=== PATIENT | male | born 1950 | race Caucasian/White ===

== ENCOUNTER 2019-06-08 06:00 | Outpatient (RCR) | payer OTHER, SELFPAY | END 2019-07-08 00:01 | LOC: SPT 06:00 | PROVIDERS: Family Provider Emergency Medicine Emergency Medical Services; Visit Provider Emergency Medicine Emergency Medical Services | DX: R53.1 Weakness (principal); M25.512 Pain in left shoulder; M79.642 Pain in left hand | CPT/HCPCS: 97110 ×2 ==

== ENCOUNTER 2019-06-08 06:00 | Outpatient (RCR) | payer OTHER, SELFPAY | END 2019-07-08 00:01 | LOC: SOT 06:00 | PROVIDERS: Family Provider Emergency Medicine Emergency Medical Services; Visit Provider Emergency Medicine Emergency Medical Services | DX: R53.1 Weakness (principal) | CPT/HCPCS: 97110 ×3; 97140 ×3 ==

== ENCOUNTER 2019-07-09 06:00 | Outpatient (RCR) | payer OTHER, SELFPAY | END 2019-08-08 23:59 | disposition home or self-care (01) | LOC: SOT 06:00 | PROVIDERS: Family Provider Emergency Medicine Emergency Medical Services; Visit Provider Emergency Medicine Emergency Medical Services | DX: R53.1 Weakness (principal) | CPT/HCPCS: 97110; 97140; 97760 ==

== ENCOUNTER → 2019-08-07 09:18 | Outpatient (BNVA) | payer OTHER, SELFPAY | PROVIDERS: Family Provider Emergency Medicine Emergency Medical Services; PCP Emergency Medicine Emergency Medical Services; Visit Provider Urology | DX: R31.29 Other microscopic hematuria (principal); N39.9 Disorder of urinary system, unspecified | CPT/HCPCS: 81001 ==

== ENCOUNTER 2019-08-09 06:00 | Outpatient (RCR) | payer OTHER, SELFPAY | END 2019-09-06 23:59 | disposition home or self-care (01) | LOC: SOT 06:00 | PROVIDERS: Family Provider Emergency Medicine Emergency Medical Services; PCP Emergency Medicine Emergency Medical Services; Visit Provider Emergency Medicine Emergency Medical Services | DX: R53.1 Weakness (principal) | CPT/HCPCS: 97110; 97140 ==

== ENCOUNTER 2019-09-22 08:36 | Outpatient (RCR) | payer OTHER, SELFPAY | END 2019-10-07 23:59 | disposition home or self-care (01) | LOC: SPT 08:36 | PROVIDERS: Family Provider Emergency Medicine Emergency Medical Services; PCP Emergency Medicine Emergency Medical Services; Referring Provider Emergency Medicine Emergency Medical Services; Visit Provider Emergency Medicine Emergency Medical Services | DX: G54.0 Brachial plexus disorders (principal) | CPT/HCPCS: 97110; 97161 ==

== ENCOUNTER 2019-10-08 06:00 | Outpatient (RCR) | payer OTHER, SELFPAY | END 2019-11-06 23:59 | disposition home or self-care (01) | LOC: SPT 06:00 | PROVIDERS: PCP Emergency Medicine Emergency Medical Services; Referring Provider Emergency Medicine Emergency Medical Services; Visit Provider Emergency Medicine Emergency Medical Services | DX: M79.602 Pain in left arm (principal); G54.0 Brachial plexus disorders | CPT/HCPCS: 97110 ==

== ENCOUNTER 2020-01-13 06:00 | Outpatient (RCR) | payer OTHER, SELFPAY | END 2020-02-06 23:59 | disposition home or self-care (01) | LOC: SOT 06:00 | PROVIDERS: PCP Emergency Medicine Emergency Medical Services; Referring Provider Surgery Plastic and Reconstructive Surgery; Visit Provider Surgery Plastic and Reconstructive Surgery | DX: G54.0 Brachial plexus disorders (principal) | CPT/HCPCS: 97110; 97140; 97167 ==

== ENCOUNTER 2020-02-07 06:00 | Outpatient (RCR) | payer OTHER, SELFPAY | END 2020-03-08 23:59 | disposition home or self-care (01) | LOC: SOT 06:00 | PROVIDERS: PCP Emergency Medicine Emergency Medical Services; Referring Provider Surgery Plastic and Reconstructive Surgery; Visit Provider Surgery Plastic and Reconstructive Surgery | DX: G54.0 Brachial plexus disorders (principal) | CPT/HCPCS: 97110; 97140 ==

== ENCOUNTER 2020-03-09 06:00 | Outpatient (RCR) | payer OTHER, SELFPAY | END 2020-04-07 23:59 | disposition home or self-care (01) | LOC: SOT 06:00 | PROVIDERS: PCP Emergency Medicine Emergency Medical Services; Referring Provider Surgery Plastic and Reconstructive Surgery; Visit Provider Surgery Plastic and Reconstructive Surgery | DX: G54.0 Brachial plexus disorders (principal) | CPT/HCPCS: 97032; 97110; 97112; 97140 ==

== ENCOUNTER 2020-04-08 06:00 | Outpatient (RCR) | payer OTHER, SELFPAY | END 2020-05-08 23:59 | disposition home or self-care (01) | LOC: SOT 06:00 | PROVIDERS: PCP Emergency Medicine Emergency Medical Services; Referring Provider Surgery Plastic and Reconstructive Surgery; Visit Provider Surgery Plastic and Reconstructive Surgery | DX: G54.0 Brachial plexus disorders (principal) | CPT/HCPCS: 97110; 97112 ==

== ENCOUNTER 2020-06-08 00:47 | Outpatient (RCR) | payer OTHER, SELFPAY | END 2020-07-08 23:59 | disposition home or self-care (01) | LOC: SOT 00:47 | PROVIDERS: PCP Emergency Medicine Emergency Medical Services; Referring Provider Surgery Plastic and Reconstructive Surgery; Visit Provider Surgery Plastic and Reconstructive Surgery | DX: G54.0 Brachial plexus disorders (principal) | CPT/HCPCS: 97110; 97112 ==

== ENCOUNTER 2020-07-09 06:00 | Outpatient (RCR) | payer OTHER, SELFPAY | END 2020-08-08 23:59 | disposition home or self-care (01) | LOC: SOT 06:00 | PROVIDERS: PCP Emergency Medicine Emergency Medical Services; Referring Provider Surgery Plastic and Reconstructive Surgery; Visit Provider Surgery Plastic and Reconstructive Surgery | DX: G54.0 Brachial plexus disorders (principal) | CPT/HCPCS: 87635 ==

== ENCOUNTER 2020-08-09 06:00 | Outpatient (CLI) | payer OTHER, SELFPAY | END 2020-08-09 06:01 | disposition home or self-care (01) | LOC: LAB 02-23 14:30 | PROVIDERS: PCP Emergency Medicine Emergency Medical Services; Visit Provider Urology | DX: R31.29 Other microscopic hematuria (principal) | CPT/HCPCS: 81003 ==

== ENCOUNTER → 2020-09-20 08:20 | Outpatient (BNVA) | payer OTHER, SELFPAY | PROVIDERS: PCP Emergency Medicine Emergency Medical Services; Visit Provider Urology | DX: N40.1 Benign prostatic hyperplasia with lower urinary tract symptoms (principal); R31.29 Other microscopic hematuria | CPT/HCPCS: 81003 ==

== ENCOUNTER 2021-08-01 09:24 | Emergency (ER) | payer OTHER, MEDICARE, SELFPAY ==
--- NOTE | 2021-08-01 09:49 | W.ED.MALEGU ---
Documented by User: YUE Ferguson 08/01/21 16:30 HPI - Male Genitourinary General: Chief complaint: Urogenital-Male Stated complaint: URINATING BLOOD Time Seen by Provider: 08/01/21 10:42 History of Present Illness: HPI Narrative: Patient states he urinated blood last couple days. Has history of enlarged prostate. Said he had bloody stools back on June 26 after he started taking niacin once he stopped that bloody stools went away. Patient states when he starts his stream is, bright red and then it starts clear up. He denies any fever chills nausea vomiting or difficulty urinating present patient has had some right flank pain. Is scheduled see Dr. Adams on 227 for colonoscopy consult. Has had a history of 3 open heart. Patient is diabetic. Associated symptoms: Reports hematuria; Deny nausea or vomiting Review of Systems Const: Denies: fever(s), chills or body aches Eyes: Denies: change in vision or blurry vision ENMT: Denies: throat pain or nasal congestion Card: Denies: chest pain or dyspnea on exertion Resp: Denies: dyspnea, productive cough or non-productive cough GI: Denies: abdominal pain, nausea or vomiting : Reports: flank pain (Right side) and hematuria; Denies: difficulty urinating Musc: Denies: extremity pain Skin/Breast: Denies: rash Neuro: Denies: headache(s) Psych: Denies: anxiety or depression Uriel/Lymph: Denies: easy bruising PFSH ED PFSH: Medical History 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 BPH loc w urin obs/LUTS Diabetes mellitus GERD (gastroesophageal reflux disease) Hypercholesteremia Hypertension Microscopic hematuria TIA (transient ischemic attack) Surgical History History of circumcision History of mitral valve replacement with bioprosthetic valve Status post colonoscopy Family History Mother , AT AGE 74 CHF (congestive heart failure) Father , AT AGE 86 CAD (coronary artery disease) Social History Smoking and tobacco status: never smoked Alcohol intake: never Adopted: No Caregiver/support person: No Lives independently: No Household members: spouse Marital status: Current occupational status: retired History of recent travel: No Physical Exam Const: COMMON NORMALS: no acute distress, average body habitus and patient oriented x3 HENMT: COMMON NORMALS: normocephalic HEAD & SCALP: normal to inspection and normocephalic FACE & SINUS: normal facial exam Eye: COMMON NORMALS: conjunctivae normal GENERAL EYE: appearance normal, both eyes and all related structures CONJUNCTIVA: Yes conjunctivae normal Neck/C-Spine: COMMON NORMALS: no JVD Chest: COMMONS NORMALS: normal inspection of the chest Resp: COMMON NORMALS: normal respiratory effort and clear to auscultation bilaterally AUSCULTATION: clear to auscultation bilaterally Cardio: COMMON NORMALS: no JVD, regular rate and regular rhythm RATE: regular rate RHYTHM: regular rhythm GI: COMMON NORMALS: Normal to inspection, nondistended, normoactive bowel sounds present Extremity: COMMON NORMALS: normal to inspection and full ROM Neuro: COMMON NORMALS: patient oriented x3 Course Vital Signs: Vital signs: Vital Signs Temperature 98.1 F 08/01/21 11:19 Pulse Rate 79 08/01/21 11:19 Respiratory Rate 17 08/01/21 11:19 Blood Pressure 150/84 08/01/21 11:19 Pulse Oximetry 100 08/01/21 11:19 MDM - Male MDM Narrative Medical decision making narrative: Discussed case and laboratory and clinical presentation with Dr. Anne agreed that best plan patient follow-up Dr. Rodríguez since ER he sees him. Patient has hematuria. Also has history of enlarged prostate and that is visible on the CT. CT is no change in that from previous no 2017. Patient does have obvious cholelithiasis on CT. And mild sigmoid diverticulosis. Discussed with patient his and agree with plan and they will follow up with Dr. Adams as scheduled on the and will call Dr. Rodríguez's office today and see if they want to see him sooner than later which he does have appointment in September. Lab Data Labs: Lab Results 08/01/21 10:06 Urine Color Yellow (Yellow) Urine Appearance Hazy A (CLEAR) Urine pH 5 (5-7) Ur Specific Counce 1.010 (1.005-1.030) Urine Protein Neg (Negative) Urine Glucose (UA) Norm (Normal) Urine Ketones Negative (Negative) Urine Blood 3+ H (Negative) Urine Nitrate Negative (Negative) Urine Bilirubin Neg (Negative) Urine Urobilinogen Norm mg/dL mg/dL (Negative) Ur Leukocyte Esterase Negative (Negative) Urine RBC Too numerous to cnt /hpf H /hpf (0-2) Urine WBC 0-4 /hpf H /hpf (0-5) Ur Squamous Epith Cells Rare /hpf /hpf (0-5) Amorphous Sediment Not Reportable Urine Bacteria Trace /hpf /hpf (NONE) Discharge Plan Discharge Patient Disposition: Home Clinical Impression: Microscopic hematuria Condition: Stable Prescriptions: No Action alfuzosin 10 mg tablet extended release 24 hr 10 mg PO DAILY Qty: 90 3RF clopidogrel [Plavix] 75 mg tablet 75 mg PO QDAY 0RF pantoprazole [Protonix] 40 mg tablet,delayed release (DR/EC) 40 mg PO QDAY 0RF atorvastatin 40 mg tablet 40 mg PO QDAY 0RF Rx Instructions: 1/2 TAB docusate sodium [Colace] 100 mg capsule 100 mg PO QDAY 0RF metoprolol succinate 25 mg tablet extended release 24 hr 25 mg PO QDAY 0RF aspirin [Adult Low Dose Aspirin] 81 mg tablet,delayed release (DR/EC) 81 mg PO QDAY 0RF furosemide [Lasix] 40 mg tablet 40 mg PO QDAY PRN0RF gabapentin 600 mg tablet 600 mg PO .PRN 0RF metformin 1,000 mg tablet extended release 24hr 1,000 mg PO DAILY 0RF Rx Instructions: 1/2 TABLET NEEDED potassium chloride [Klor-Con M20] 20 mEq tablet,ER particles/crystals 20 meq PO .PRN 0RF finasteride 5 mg tablet 5 mg PO QDAY Qty: 90 3RF Discharge Orders: Discharge ED (Routine); Ordered 08/01/21 Ordered By: Kranthi Schwab Referrals: Carson Abel, [Primary Care Provider] - Discharge Diet: Usual diet Discharge Activity: Resume usual activity Patient Instructions: Hematuria (ED) Activity Restrictions/Additional Instructions: Keep appointment as scheduled. Contact Dr. Rodríguez's office today and see if they would like to see you sooner than later. Monitor for any significant changes. If signs and symptoms of infection develop such as high fever chills urinary frequency please follow-up your primary care or return here. 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 BPH loc w urin obs/LUTS Diabetes mellitus GERD (gastroesophageal reflux disease) Hypercholesteremia Hypertension Microscopic hematuria TIA (transient ischemic attack) Surgical History History of circumcision History of mitral valve replacement with bioprosthetic valve Status post colonoscopy Family History Mother , AT AGE 74 CHF (congestive heart failure) Father , AT AGE 86 CAD (coronary artery disease) Social History Smoking and tobacco status: never smoked Alcohol intake: never Adopted: No Caregiver/support person: No Lives independently: No Household members: spouse Marital status: Current occupational status: retired History of recent travel: No Course Vital Signs: Vital signs: Vital Signs Temperature 98.1 F 08/01/21 11:19 Pulse Rate 79 08/01/21 11:19 Respiratory Rate 17 08/01/21 11:19 Blood Pressure 150/84 08/01/21 11:19 Pulse Oximetry 100 08/01/21 11:19 MDM - Male MDM Narrative Medical decision making narrative: Patient care discussed with Kranthi Schwab NP. I have reviewed labs and documentation. Raymond Hinkle MD Emergency Medicine Lab Data Labs: Lab Results 08/01/21 10:06 Urine Color Yellow (Yellow) Urine Appearance Hazy A (CLEAR) Urine pH 5 (5-7) Ur Specific Counce 1.010 (1.005-1.030) Urine Protein Neg (Negative) Urine Glucose (UA) Norm (Normal) Urine Ketones Negative (Negative) Urine Blood 3+ H (Negative) Urine Nitrate Negative (Negative) Urine Bilirubin Neg (Negative) Urine Urobilinogen Norm mg/dL mg/dL (Negative) Ur Leukocyte Esterase Negative (Negative) Urine RBC Too numerous to cnt /hpf H /hpf (0-2) Urine WBC 0-4 /hpf H /hpf (0-5) Ur Squamous Epith Cells Rare /hpf /hpf (0-5) Amorphous Sediment Not Reportable Urine Bacteria Trace /hpf /hpf (NONE) Discharge Plan Discharge Patient Disposition: Home Clinical Impression: Microscopic hematuria Condition: Stable Prescriptions: No Action alfuzosin 10 mg tablet extended release 24 hr 10 mg PO DAILY Qty: 90 3RF clopidogrel [Plavix] 75 mg tablet 75 mg PO QDAY 0RF pantoprazole [Protonix] 40 mg tablet,delayed release (DR/EC) 40 mg PO QDAY 0RF atorvastatin 40 mg tablet 40 mg PO QDAY 0RF Rx Instructions: 1/2 TAB docusate sodium [Colace] 100 mg capsule 100 mg PO QDAY 0RF metoprolol succinate 25 mg tablet extended release 24 hr 25 mg PO QDAY 0RF aspirin [Adult Low Dose Aspirin] 81 mg tablet,delayed release (DR/EC) 81 mg PO QDAY 0RF furosemide [Lasix] 40 mg tablet 40 mg PO QDAY PRN0RF gabapentin 600 mg tablet 600 mg PO .PRN 0RF metformin 1,000 mg tablet extended release 24hr 1,000 mg PO DAILY 0RF Rx Instructions: 1/2 TABLET NEEDED potassium chloride [Klor-Con M20] 20 mEq tablet,ER particles/crystals 20 meq PO .PRN 0RF finasteride 5 mg tablet 5 mg PO QDAY Qty: 90 3RF Discharge Orders: Discharge ED (Routine); Ordered 08/01/21 Ordered By: Kranthi Schwab Referrals: Carson Abel DO [Primary Care Provider] - Discharge Diet: Usual diet Discharge Activity: Resume usual activity Patient Instructions: Hematuria (ED) Activity Restrictions/Additional Instructions: Keep appointment as scheduled. Contact Dr. Rodríguez's office today and see if they would like to see you sooner than later. Monitor for any significant changes. If signs and symptoms of infection develop such as high fever chills urinary frequency please follow-up your primary care or return here. Coding Level of Care Code ED Environmental Technician for Jayda Fwd Exam Comprehensive
[2021-08-01 09:54] VITALS: BP 138/78; PULSE 80; RESP 16; TEMP 36.6; O2SAT 97; BMI 32.1
--- NOTE | 2021-08-01 10:38 | CT_ITS ---
WS: [id number] CT ABDOMEN AND PELVIS NONCONTRAST HISTORY: hematuria, flank pain right TECHNIQUE: Imaging performed through the abdomen and pelvis. Coronal and sagittal reformats are submi tted. All CT scans at [facility] use at least one of these dose optimization techniques: auto mated exposure control; mA and/or kV adjustment per patient size (includes targeted exams where dose is matched to clinical indication); or iterative reconstruction. DLP: 1866.43 mGy.cm COMPARISON: 01/17/2018 Lower thorax: Chronic emphysematous changes at the lung bases. 5 mm scar at the LEFT lung base. Heart is slightly enlarged. No pericardial fluid. Small hiatal hernia. Liver: Normal size liver. No mass or bile duct dilatation. Gallbladder: Normally distended gallbladder. Numerous small stones layering in the gallbladder which are new since 01/17/2018. No adjacent inflammation. Common bile duct is normal. Pancreas: Normal size and attenuation. Normal pancreatic duct. No pancreatitis or mass. Spleen: Normal size spleen. There are multiple defects within the spleen from scarring and fibrosis. Infarct was identified on the prior study from 2018 and now there is focal area of scarring in the re gion of the prior infarct. Adrenal glands: Normal. No mass. Right kidney: Normal size kidney with no mass or hydronephrosis. Left kidney: Very mild perinephric stranding. No obstruction. No calcification. Aorta: Mild atherosclerosis abdominal aorta with no aneurysm. There are a few subcentimeter and benign-appearing retroperitoneal lymph nodes. GI tract: Normal appendix. No GI tract obstruction. Stomach is not distended. Normal small bowel john astrid. Numerous diverticula in the descending and sigmoid colon with no acute diverticulitis. Abdominal wall: Small umbilical hernia contains fat only. Pelvis: Well-distended urinary bladder. Prostate gland is enlarged encroaching into the urinary bladd er. Prostate measures 5.0 x 3.4 cm and extends over a length of 6.3 cm. Encroachment into the urinary bladder similar to the prior study from 2018. No free fluid. No adenopathy. Osseous structures: Moderate spondylitic changes in the lumbar spine. No osteoblastic or osteolytic b one disease. Partial fusion of the SI joints. CT/CT kidney stone 22368 IMPRESSION: 1. No renal obstruction or calcifications. 2. Cholelithiasis without acute cholecystitis. 3. Prostate gland enlargement with encroachment into the urinary bladder. 4. Mild sigmoid diverticulosis without acute diverticulitis. 5. No free fluid or free air. 6. Normal appendix.
[2021-08-01 10:39] LABS: Add Urine Microscopic? YES; Bilirubin Urine Neg (Negative); Blood Urine 3+ (Negative); Glucose Urine UA Norm (Normal); Ketones Urine Negative (Negative); Leukocyte Esterase Urine Negative (Negative); Nitrate Urine Negative (Negative); Protein Urine Neg (Negative); Urine Appearance Hazy (CLEAR); Urine Color Yellow (Yellow); Urobilinogen Urine Norm (Negative); pH Urine 5 (5-7)
[2021-08-01 10:40] LABS: Add Urine Culture? Yes; Bacteria Urine TRACE /hpf; RBC Urine TOO NUMEROUS TO CNT /hpf (0-2); Squamous Epithelial Cell Urine RARE /hpf (0-5); WBC Urine 0-4 /hpf (0-5)
[2021-08-01 11:19] VITALS: BP 150/84; PULSE 79; RESP 17; TEMP 36.7; O2SAT 100
== END 2021-08-01 11:35 | disposition home or self-care (01) ==
PROVIDERS: Emergency Provider Nurse Practitioner Family; PCP Emergency Medicine Emergency Medical Services
DX: R31.29 Other microscopic hematuria (principal); Z79.84 Long term (current) use of oral hypoglycemic drugs; Z79.02 Long term (current) use of antithrombotics/antiplatelets; Z79.82 Long term (current) use of aspirin; E11.9 Type 2 diabetes mellitus without complications; I10 Essential (primary) hypertension; Z86.73 Personal history of transient ischemic attack (TIA), and cerebral infarction without residual deficits
CPT/HCPCS: 74176; 81001; 87086; 99282

== ENCOUNTER → 2021-08-04 13:46 | Outpatient (BNVA) | payer OTHER, MEDICARE, SELFPAY | PROVIDERS: PCP Emergency Medicine Emergency Medical Services; Visit Provider Urology | DX: N40.1 Benign prostatic hyperplasia with lower urinary tract symptoms (principal); Z12.5 Encounter for screening for malignant neoplasm of prostate; R31.0 Gross hematuria; Z79.02 Long term (current) use of antithrombotics/antiplatelets | CPT/HCPCS: 81003; 87086; 88112; G0103 ==

== ENCOUNTER → 2021-09-07 09:30 | Outpatient (BNVA) | payer OTHER, SELFPAY | PROVIDERS: PCP Emergency Medicine Emergency Medical Services; Visit Provider Internal Medicine | DX: Z20.822 Contact with and (suspected) exposure to COVID-19 (principal); Z01.812 Encounter for preprocedural laboratory examination | CPT/HCPCS: 87635 ==

== ENCOUNTER → 2021-09-21 08:58 | Outpatient (BNVA) | payer OTHER, SELFPAY | PROVIDERS: PCP Emergency Medicine Emergency Medical Services; Visit Provider Nurse Practitioner Family | DX: Z20.822 Contact with and (suspected) exposure to COVID-19 (principal); J98.9 Respiratory disorder, unspecified; R50.9 Fever, unspecified | CPT/HCPCS: 87635 ==

== ENCOUNTER 2021-09-26 06:38 | Day surgery (SDC) | payer OTHER, SELFPAY ==
[2021-09-07 14:27] VITALS: BMI 31.6
[2021-09-26 07:40] VITALS: BP 146/94; PULSE 90; RESP 20; TEMP 36.1; O2SAT 100
--- NOTE | 2021-09-26 07:43 | ANES.PREANE2 ---
Pre-Anesthetic Assessment Height/Weight: Height 1.93 m Weight 117.934 kg Preop Diagnosis: Melena and hematochezia Operation Date: 09/26/21 08:30 Proposed Procedures p EGD 78893/k92.1(Not Applicable) - Chu Adams MD s Colonoscopy 00985/k92.1(Not Applicable) - Chu Adams MD Familial anesthetic complications: None Was Beta Lio taken within 24 hours: Yes Was Clonidine taken within 24 hours: N/A Social No alcohol and No tobacco Exam alert, oriented x 3 and clear to auscultation bilaterally irregular Airway Submandibular: within normal limits Cervical ROM: within normal limits Mallampati: Class III Dentition: chipped Comments: Comments: Apparent h/o difficult intubation, says teeth chipped during intubation CV/HEM Atrial Fibrillation, Anemia and Hypertension LUE aneurysm, 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 Metabolic Diabetes Mellitus, Hyperlipidemia, Morbid Obesity and Thyroid Disease Neuropsych Neuropathy Anesthetic Plan ASA status: 3 Anesthesia: MAC Medications/Allergies Home Medications Medication Instructions Recorded Confirmed Last Taken Type aspirin 81 mg tablet,delayed 81 mg PO QDAY 08/07/19 09/26/21 09/25/21 History release (Adult Low Dose Aspirin) atorvastatin 40 mg tablet 40 mg PO QDAY 08/07/19 09/26/21 09/25/21 History clopidogrel 75 mg tablet (Plavix) 75 mg PO QDAY 08/07/19 09/26/21 09/25/21 History docusate sodium 100 mg capsule 100 mg PO QDAY 08/07/19 09/26/21 09/25/21 History (Colace) furosemide 40 mg tablet (Lasix) 40 mg PO QDAY PRN 08/07/19 09/26/21 Unknown History metoprolol succinate 25 mg 25 mg PO QDAY 08/07/19 09/26/21 09/26/21 History tablet,extended release 24 hr pantoprazole 40 mg tablet,delayed 40 mg PO QDAY 08/07/19 09/26/21 09/25/21 History release (Protonix) alfuzosin 10 mg tablet,extended 10 mg PO DAILY #90 tab 08/09/20 09/26/21 09/25/21 Rx release 24 hr gabapentin 600 mg tablet 600 mg PO DAILY PRN tab 09/20/20 09/26/21 Unknown History metformin 1,000 mg tablet,extended 500 mg PO BID tab 09/20/20 09/23/21 Unknown History release 24hr potassium chloride 20 mEq 20 meq PO DAILY PRN tab 09/20/20 09/26/21 Unknown History tablet,extended release(part/cryst) (NighatCon M) finasteride 5 mg tablet 5 mg PO QDAY #90 tab 08/04/21 09/26/21 09/25/21 Rx Allergies Allergy/AdvReac Type Severity Reaction Status Date / Time Sulfa (Sulfonamide Allergy Unknown Verified 09/26/21 07:34 Antibiotics) [facility] Anesthesia Medical History 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 BPH loc w urin obs/LUTS Diabetes mellitus GERD (gastroesophageal reflux disease) Hypercholesteremia Hypertension Microscopic hematuria TIA (transient ischemic attack) Surgical History History of circumcision History of mitral valve replacement with bioprosthetic valve Status post colonoscopy Family History Mother , AT AGE 74 CHF (congestive heart failure) Father , AT AGE 86 CAD (coronary artery disease) Social History Smoking and tobacco status: never smoked Alcohol intake: never Adopted: No Caregiver/support person: No Lives independently: No Household members: spouse Marital status: Current occupational status: retired History of recent travel: No Data Anesthesia Cardiac Studies: No Data to Display
[2021-09-26] MEDS: sodium chloride 0.9% 1,000 ML 30 ML IV (07:52)
--- NOTE | 2021-09-26 07:54 | W.PM.OPSFHP ---
Same Day Surgery H&P Indication for Procedure/HPI DATE OF PROCEDURE: September 26, 2021 CHIEF COMPLAINT/INDICATIONFOR SURGICAL PROCEDURE: Hematochezia PREOP DIAGNOSIS: Melena and hematochezia PLANNED PROCEDURE: Operation Date: 09/26/21 08:30 Proposed Procedures p EGD 03468/k92.1(Not Applicable) - Chu Adams MD s Colonoscopy 79851/k92.1(Not Applicable) - Chu Adams MD Medications/Allergies* Home Medications Medication Instructions Recorded Confirmed Type aspirin 81 mg tablet,delayed 81 mg PO QDAY 08/07/19 09/26/21 History release (Adult Low Dose Aspirin) atorvastatin 40 mg tablet 40 mg PO QDAY 08/07/19 09/26/21 History clopidogrel 75 mg tablet (Plavix) 75 mg PO QDAY 08/07/19 09/26/21 History docusate sodium 100 mg capsule 100 mg PO QDAY 08/07/19 09/26/21 History (Colace) furosemide 40 mg tablet (Lasix) 40 mg PO QDAY PRN 08/07/19 09/26/21 History metoprolol succinate 25 mg 25 mg PO QDAY 08/07/19 09/26/21 History tablet,extended release 24 hr pantoprazole 40 mg tablet,delayed 40 mg PO QDAY 08/07/19 09/26/21 History release (Protonix) gabapentin 600 mg tablet 600 mg PO DAILY PRN tab 09/20/20 09/26/21 History metformin 1,000 mg tablet,extended 500 mg PO BID tab 09/20/20 09/23/21 History release 24hr potassium chloride 20 mEq 20 meq PO DAILY PRN tab 09/20/20 09/26/21 History tablet,extended release(part/cryst) (Klor-Con M) Allergies/Adverse Reactions Allergy/AdvReac Type Severity Reaction Status Date / Time Sulfa (Sulfonamide Allergy Unknown Verified 09/26/21 07:34 Antibiotics) Current Medications: Generic Name Dose Route Start Last Admin Trade Name Freq PRN Reason Stop Dose Admin Sodium Chloride 1,000 mls @ 30 mls/hr 09/26/21 07:15 09/26/21 07:52 Sodium Chloride 0.9% IV 30 mls/hr .Q24H DANIELLE Administration Pertinent History/Comorbid Conditions* Medical History (Updated 08/30/21 @ 10:00 by Chu Adams MD) 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 BPH loc w urin obs/LUTS Diabetes mellitus GERD (gastroesophageal reflux disease) Hypercholesteremia Hypertension Microscopic hematuria TIA (transient ischemic attack) Surgical History (Updated 09/01/19 @ 14:10 by Estevan Bowden MD) History of circumcision History of mitral valve replacement with bioprosthetic valve Status post colonoscopy Family History (Updated 09/20/20 @ 08:26 by Shyann Mcconnell LPN) Father, AT AGE 86 Mother, AT AGE 74 CAD (coronary artery disease) Father CHF (congestive heart failure) Mother Social History Smoking and tobacco status: never smoked Alcohol intake: never Adopted: No Caregiver/support person: No Lives independently: No Household members: spouse Marital status: Current occupational status: retired History of recent travel: No Pertinent Exam Findings alert, oriented x 3, clear to auscultation bilaterally, regular rate & rhythm, operative site marked and procedure specific exam findings Recommendations Surgery/Procedure today Coding Level of Care Code Acute [employer] Spray Supervisor for Jayda Etienne
--- NOTE | 2021-09-26 09:15 | PC.NURSE ---
Anesthesia made aware that no BP was to be obtained on left side. Dr. Alas said she believes it will be okay and placed BP cuff on left side and obtained blood pressure.
[2021-09-26 09:32] VITALS: BP 119/71; PULSE 76; RESP 16; TEMP 36.3; O2SAT 99
[2021-09-26 09:45] VITALS: BP 140/66; PULSE 67; RESP 18; TEMP 36.5; O2SAT 98
--- NOTE | 2021-09-26 14:50 | ANE.PACU2 ---
Inpatient post-anesthesia follow up: Airway intact: Yes Vital signs: Temperature 97.7 F Pulse Rate 67 Respiratory Rate 18 Blood Pressure 140/66 Pulse Oximetry 98 Oxygen Delivery Me thod Room Air Oxygen Flow Rate Fraction of Inspir ed Oxygen Hydration adequate: Yes Nausea and vomiting: No Pain level: 1 Mental status: Baseline
== END 2021-09-26 10:02 | disposition home or self-care (01) ==
PROVIDERS: PCP Emergency Medicine Emergency Medical Services; Visit Provider Internal Medicine
PROC: 0DJ08ZZ Inspection of Upper Intestinal Tract, Via Natural or Artificial Opening Endoscopic (ICD-10-PCS; CPT 43235; principal; 2021-09-26 08:30)
PROC: 0DJD8ZZ Inspection of Lower Intestinal Tract, Via Natural or Artificial Opening Endoscopic (ICD-10-PCS; CPT 45378; 2021-09-26 08:30)
DX: K92.1 Melena (principal); K57.30 Diverticulosis of large intestine without perforation or abscess without bleeding; Z79.82 Long term (current) use of aspirin; Z79.84 Long term (current) use of oral hypoglycemic drugs; N40.1 Benign prostatic hyperplasia with lower urinary tract symptoms; N13.8 Other obstructive and reflux uropathy; E11.9 Type 2 diabetes mellitus without complications; E78.00 Pure hypercholesterolemia, unspecified; Z86.73 Personal history of transient ischemic attack (TIA), and cerebral infarction without residual deficits; Z82.49 Family history of ischemic heart disease and other diseases of the circulatory system; E66.01 Morbid (severe) obesity due to excess calories; Z68.31 Body mass index [BMI] 31.0-31.9, adult
CPT/HCPCS: 43235; 45378; J2704; J7030

== ENCOUNTER 2021-10-25 06:00 | Outpatient (RCR) | payer OTHER, SELFPAY | END 2021-11-05 23:59 | disposition home or self-care (01) | LOC: SOT 06:00 | PROVIDERS: PCP Emergency Medicine Emergency Medical Services; Referring Provider Emergency Medicine Emergency Medical Services; Visit Provider Emergency Medicine Emergency Medical Services | DX: G54.0 Brachial plexus disorders (principal) | CPT/HCPCS: 97110; 97140; 97166 ==

== ENCOUNTER 2021-11-06 06:00 | Outpatient (RCR) | payer OTHER, SELFPAY | END 2021-12-06 23:59 | disposition home or self-care (01) | LOC: SOT 06:00 | PROVIDERS: PCP Emergency Medicine Emergency Medical Services; Referring Provider Emergency Medicine Emergency Medical Services; Visit Provider Emergency Medicine Emergency Medical Services | DX: G54.0 Brachial plexus disorders (principal) | CPT/HCPCS: 97018; 97110; 97140 ==

== ENCOUNTER 2021-12-07 06:00 | Outpatient (RCR) | payer OTHER, SELFPAY | END 2022-01-05 23:59 | disposition home or self-care (01) | LOC: SOT 06:00 | PROVIDERS: PCP Emergency Medicine Emergency Medical Services; Referring Provider Emergency Medicine Emergency Medical Services; Visit Provider Emergency Medicine Emergency Medical Services | DX: G54.0 Brachial plexus disorders (principal) | CPT/HCPCS: 97110; 97140 ==

== ENCOUNTER 2022-01-06 06:00 | Outpatient (RCR) | payer OTHER, SELFPAY | END 2022-02-05 23:59 | disposition home or self-care (01) | LOC: SOT 06:00 | PROVIDERS: PCP Emergency Medicine Emergency Medical Services; Referring Provider Emergency Medicine Emergency Medical Services; Visit Provider Emergency Medicine Emergency Medical Services | DX: G54.0 Brachial plexus disorders (principal) | CPT/HCPCS: 97110; 97140 ==

== ENCOUNTER 2022-02-06 06:00 | Outpatient (RCR) | payer OTHER, SELFPAY | END 2022-03-08 23:59 | disposition home or self-care (01) | LOC: SOT 06:00 | PROVIDERS: PCP Emergency Medicine Emergency Medical Services; Visit Provider Emergency Medicine Emergency Medical Services | DX: G54.0 Brachial plexus disorders (principal) | CPT/HCPCS: 97032; 97110; 97140 ==

== ENCOUNTER 2022-03-09 06:00 | Outpatient (RCR) | payer OTHER, SELFPAY | END 2022-04-07 23:59 | disposition home or self-care (01) | LOC: SOT 06:00 | PROVIDERS: PCP Emergency Medicine Emergency Medical Services; Visit Provider Emergency Medicine Emergency Medical Services | DX: G54.0 Brachial plexus disorders (principal) | CPT/HCPCS: 97110; 97140 ==

== ENCOUNTER → 2022-03-30 07:38 | Outpatient (BNVA) | payer OTHER, SELFPAY | PROVIDERS: PCP Emergency Medicine Emergency Medical Services; Visit Provider Urology | DX: R31.0 Gross hematuria (principal); N40.1 Benign prostatic hyperplasia with lower urinary tract symptoms | CPT/HCPCS: 51741; 51798; 99213 ==

== ENCOUNTER → 2022-04-03 09:54 | Outpatient (BNVA) | payer OTHER, SELFPAY | PROVIDERS: PCP Emergency Medicine Emergency Medical Services; Visit Provider Urology | DX: N40.1 Benign prostatic hyperplasia with lower urinary tract symptoms (principal); R31.0 Gross hematuria | CPT/HCPCS: 81003 ==

== ENCOUNTER 2022-04-08 06:00 | Outpatient (RCR) | payer OTHER, SELFPAY | END 2022-05-08 23:59 | disposition home or self-care (01) | LOC: SOT 06:00 | PROVIDERS: PCP Emergency Medicine Emergency Medical Services; Visit Provider Emergency Medicine Emergency Medical Services | DX: G54.0 Brachial plexus disorders (principal) | CPT/HCPCS: 97110; 97140 ==

== ENCOUNTER 2022-12-20 08:14 | Outpatient (RCR) | payer OTHER, SELFPAY | END 2023-01-05 23:59 | disposition home or self-care (01) | LOC: SPT 08:14 | PROVIDERS: Visit Provider Emergency Medicine Emergency Medical Services | DX: M48.10 Ankylosing hyperostosis [Forestier], site unspecified (principal) | CPT/HCPCS: 97110; 97140; 97162 ==

== ENCOUNTER 2023-01-06 06:00 | Outpatient (RCR) | payer OTHER, SELFPAY | END 2023-01-29 23:59 | disposition home or self-care (01) | LOC: SPT 06:00 | PROVIDERS: Visit Provider Emergency Medicine Emergency Medical Services | DX: M48.15 Ankylosing hyperostosis [Forestier], thoracolumbar region (principal) | CPT/HCPCS: 97110; 97140 ==